=== PATIENT | male | born 1940 | race Caucasian/White ===

== ENCOUNTER → 2020-08-26 | Outpatient (CLI) | payer MEDICARE | END | disposition home or self-care (01) | LOC: CT 14:51 | PROVIDERS: ATTEND Urology | DX: R35.0 Frequency of micturition (principal) ==

== ENCOUNTER → 2020-12-30 | Outpatient (CLI) | payer MEDICARE ==
[2020-12-30 10:39] LABS: BASO % 0.6 % (0.0-1.0); EOS % 0.8 % (1.0-4.0); HEMATOCRIT 44.6 % (42.0-52.0); LYMPH # 1.3 10*3/uL (1.3-4.4); LYMPH % 23.8 % (27.0-41.0); MEAN CELL VOLUME 90.8 fl (80.0-94.0); MEAN CORPUSCULAR HGB 30.3 pg (27.0-31.0); MEAN CORPUSCULAR HGB CONC 33.4 g/dl (33.0-37.0); MEAN PLATELET VOLUME 9.8 fl (9.6-12.3); MONO # 0.4 10*3/uL (0.1-1.0); MONO % 7.4 % (3.0-9.0); NEUT # 3.5 10*3/uL (2.3-7.9); PLATELET COUNT AUTOMATED 195 10*3/uL (130-400); RED BLOOD COUNT 4.91 10*6/uL (4.50-5.90); RED CELL DISTRI WIDTH 12.4 % (0-14.5); WHITE BLOOD COUNT 5.3 10*3/uL (4.8-10.8)
[2020-12-30 10:40] LABS: BILIRUBIN Negative (Negative); BLOOD Negative (Negative); CLARITY Clear (Clear); COLOR Dark Yellow (Yellow); GLUCOSE Negative (Negative); KETONE Trace (Negative); LEUKO ESTERASE Negative (Negative); NITRITE Negative (Negative); PH 7.5 (4.5-8.0)
[2020-12-30 11:10] LABS: ALBUMIN 3.8 gm/dl (3.1-4.5); ALKALINE PHOSPHATASE 56 U/L (45-117); BACTERIA TRACE; BUN 11 mg/dl (7-24); CALCIUM OXALATE CRYSTALS 1+; CHLORIDE 102 mmol/L (98-107); CREATININE 1.31 mg/dL (0.70-1.30); EPITHELIAL CELLS 0-2; MUCOUS 3+; POTASSIUM 3.9 mmol/L (3.5-5.1); SGOT/AST 14 IU/L (3-35); SGPT/ALT 21 U/L (12-78); SODIUM 137 mmol/L (136-145); TOTAL PROTEIN 7.5 gm/dL (6.4-8.2); WBC 0-2 wbc/hpf (0-5)
== END | disposition home or self-care (01) ==
LOC: LAB 10:02
PROVIDERS: ATTEND Urology
DX: J44.9 Chronic obstructive pulmonary disease, unspecified (principal); E03.9 Hypothyroidism, unspecified; R31.9 Hematuria, unspecified

== ENCOUNTER → 2021-02-09 | Outpatient (CLI) | payer OTHER ==
[2021-02-09 10:42] LABS: BASO % 0.4 % (0.0-1.0); BILIRUBIN Negative (Negative); BLOOD 1+ (Negative); CLARITY Cloudy (Clear); COLOR Yellow (Yellow); EOS # 0.2 10*3/uL (0.0-0.4); EOS % 2.2 % (1.0-4.0); GLUCOSE Negative (Negative); HEMATOCRIT 43.2 % (42.0-52.0); KETONE Negative (Negative); LEUKO ESTERASE 3+ (Negative); LYMPH # 1.7 10*3/uL (1.3-4.4); LYMPH % 25.4 % (27.0-41.0); MEAN CELL VOLUME 90.4 fl (80.0-94.0); MEAN CORPUSCULAR HGB 29.3 pg (27.0-31.0); MEAN CORPUSCULAR HGB CONC 32.4 g/dl (33.0-37.0); MEAN PLATELET VOLUME 10.1 fl (9.6-12.3); MONO # 0.5 10*3/uL (0.1-1.0); MONO % 7.4 % (3.0-9.0); NEUT # 4.3 10*3/uL (2.3-7.9); NEUT % 63.4 % (47.0-73.0); NITRITE Positive (Negative); PH 7.5 (4.5-8.0); PLATELET COUNT AUTOMATED 195 10*3/uL (130-400); RED BLOOD COUNT 4.78 10*6/uL (4.50-5.90); RED CELL DISTRI WIDTH 12.4 % (0-14.5); UROBILINOGEN 0.2 E.U./dl (0.0-1.0); WHITE BLOOD COUNT 6.7 10*3/uL (4.8-10.8)
[2021-02-09 10:59] LABS: ALBUMIN 3.5 gm/dl (3.1-4.5); ALKALINE PHOSPHATASE 56 U/L (45-117); BUN 7 mg/dl (7-24); CHLORIDE 101 mmol/L (98-107); CREATININE 1.12 mg/dL (0.70-1.30); POTASSIUM 3.6 mmol/L (3.5-5.1); SGOT/AST 14 IU/L (3-35); SGPT/ALT 20 U/L (12-78); SODIUM 135 mmol/L (136-145)
[2021-02-09 12:06] LABS: WBC TNTC wbc/hpf (0-5)
[2021-02-09 12:08] LABS: BACTERIA 3+; RBC 16-20 rbc/hpf (0-2)
== END | disposition home or self-care (01) ==
LOC: LAB 09:43 → US 09:43
PROVIDERS: ATTEND Urology
DX: N39.0 Urinary tract infection, site not specified (principal); N28.89 Other specified disorders of kidney and ureter

== ENCOUNTER → 2021-09-06 | Outpatient (CLI) | payer MEDICARE | END | disposition home or self-care (01) | LOC: LAB 09:38 | PROVIDERS: ATTEND Urology | DX: N39.0 Urinary tract infection, site not specified (principal) ==

== ENCOUNTER 2022-04-17 15:00 | Emergency (ER) | payer MEDICARE ==
[~2022-04-17] VITALS: Ht 172.7 cm; Wt 86.2 kg
[2022-04-17 16:17] LABS: BASO # 0.1 10*3/uL (0.0-0.1); BASO % 0.6 % (0.0-1.0); EOS # 0.1 10*3/uL (0.0-0.4); EOS % 1.6 % (1.0-4.0); HEMATOCRIT 45.4 % (42.0-52.0); LYMPH # 1.7 10*3/uL (1.3-4.4); MEAN CELL VOLUME 89.9 fl (80.0-94.0); MEAN CORPUSCULAR HGB 30.7 pg (27.0-31.0); MEAN CORPUSCULAR HGB CONC 34.1 g/dl (33.0-37.0); MEAN PLATELET VOLUME 9.1 fl (9.6-12.3); MONO # 0.7 10*3/uL (0.1-1.0); MONO % 8.4 % (3.0-9.0); NEUT % 69.2 % (47.0-73.0); PLATELET COUNT AUTOMATED 273 10*3/uL (130-400); RED BLOOD COUNT 5.05 10*6/uL (4.50-5.90); RED CELL DISTRI WIDTH 12.7 % (0-14.5); WHITE BLOOD COUNT 8.7 10*3/uL (4.8-10.8)
[2022-04-17 16:38] LABS: ALKALINE PHOSPHATASE 63 U/L (45-117); BUN 6 mg/dl (7-24); CHLORIDE 103 mmol/L (98-107); CREATININE 0.91 mg/dL (0.70-1.30); POTASSIUM 3.7 mmol/L (3.5-5.1); SGOT/AST 13 IU/L (3-35); SGPT/ALT 25 U/L (12-78); SODIUM 136 mmol/L (136-145); TOTAL PROTEIN 6.7 gm/dL (6.4-8.2)
[2022-04-17 16:43] LABS: ETHYL ALCOHOL < 3.0 mg/dl (<3)
[2022-04-17 16:47] LABS: BILIRUBIN Negative (Negative); BLOOD Negative (Negative); CLARITY Cloudy (Clear); COLOR Yellow (Yellow); GLUCOSE Negative (Negative); KETONE Negative (Negative); LEUKO ESTERASE 3+ (Negative); NITRITE Negative (Negative); PH 6.5 (4.5-8.0); SPECIFIC GRAVITY <= 1.005 (1.001-1.030); UROBILINOGEN 0.2 E.U./dl (0.0-1.0)
[2022-04-17 17:04] LABS: URINE AMPHETAMINES < 1000 (1000ng/ml); URINE BARBITURATES < 200 (200ng/ml); URINE BENZODIAZEPINES < 200 (200ng/ml); URINE CANNABINOIDS (THC) < 50 (50ng/ml); URINE COCAINE < 300 (300ng/ml); URINE METHADONE < 300 (300ng/ml); URINE OPIATES < 300 (300ng/ml)
[2022-04-17 17:18] LABS: URINE PHENCYCLIDINE < 25 (25ng/ml)
[2022-04-17 17:23] LABS: BACTERIA TRACE; EPITHELIAL CELLS 0-2
[2022-04-17 20:00] VITALS: BP 129/81
[2022-04-18] MEDS ORDERED: BETHANECHOL CHL50 MG PO (13:06)
[2022-04-18] MEDS ORDERED: SYNTHROID25 MCG PO (13:07)
[2022-04-18] MEDS ORDERED: KLOR-CON M2020 ME1 PO (13:08)
[2022-04-18] MEDS ORDERED: D3-501250 MCG PO (13:14)
[2022-04-18] MEDS ORDERED: METAMUCIL FIBE3.4 GM PO (13:15)
[2022-04-18] MEDS ORDERED: LACTULOSE20 GM/30 M PO (13:18)
[2022-04-23] MEDS ORDERED: LACTULOSE20 GM/30 M PO (10:14)
[2022-04-23] MEDS ORDERED: VITAMIN D350 MC2 PO (10:14)
[2022-04-23] MEDS ORDERED: RAMELTEON8 MG PO (10:14)
[2022-04-23] MEDS ORDERED: MIRTAZAPINE15 M2 PO (10:14)
[2022-04-23] MEDS ORDERED: B121000 MCG/1 IM (10:14)
[2022-04-23] MEDS ORDERED: LISINOPRIL10 M1 PO (11:44)
== END 2022-04-17 23:13 ==
LOC: ED 15:00
PROVIDERS: Nurse Practitioner Family
DX: F43.23 Adjustment disorder with mixed anxiety and depressed mood (principal); Z20.822 Contact with and (suspected) exposure to COVID-19

== ENCOUNTER 2022-08-22 13:39 | Emergency (ER) | payer MEDICARE ==
[~2022-08-22] VITALS: Ht 167.6 cm; Wt 95.3 kg
[~2022-08-22 13:39] MED LIST: B121000 MCG/1 IM; BETHANECHOL CHL50 MG PO; D3-501250 MCG PO; KLOR-CON M2020 ME1 PO; LACTULOSE20 GM/30 M PO; LISINOPRIL10 M1 PO; METAMUCIL FIBE3.4 GM PO; MIRTAZAPINE15 M2 PO; RAMELTEON8 MG PO; SYNTHROID25 MCG PO; VITAMIN D350 MC2 PO
[2022-08-22 13:51] VITALS: BP 155/63
== END 2022-08-22 15:02 | disposition home or self-care (01) ==
LOC: ED 13:39
DX: T83.098A Other mechanical complication of other urinary catheter, initial encounter (principal); Z98.890 Other specified postprocedural states; Y84.8 Other medical procedures as the cause of abnormal reaction of the patient, or of later complication, without mention of misadventure at the time of the procedure; Y92.89 Other specified places as the place of occurrence of the external cause

== ENCOUNTER 2022-09-08 12:36 | Emergency (ER) | payer MEDICARE ==
[~2022-09-08] VITALS: Ht 167.6 cm; Wt 95.3 kg
[2022-09-08 12:43] VITALS: BP 116/48
== END 2022-09-08 13:18 | disposition home or self-care (01) ==
LOC: ED 12:36
DX: T83.031A Leakage of indwelling urethral catheter, initial encounter (principal); I10 Essential (primary) hypertension; F32.9 Major depressive disorder, single episode, unspecified; Z98.890 Other specified postprocedural states

== ENCOUNTER 2022-10-03 19:59 | Emergency (ER) | payer MEDICARE ==
[~2022-10-03] VITALS: Ht 182.8 cm; Wt 95.3 kg
[2022-10-03 20:46] VITALS: BP 174/74
[2022-10-03 22:01] LABS: BILIRUBIN Negative (Negative); BLOOD 1+ (Negative); CLARITY Cloudy (Clear); COLOR Yellow (Yellow); GLUCOSE Negative (Negative); KETONE Negative (Negative); LEUKO ESTERASE 3+ (Negative); NITRITE Positive (Negative); UROBILINOGEN 0.2 E.U./dl (0.0-1.0)
[2022-10-03 22:17] LABS: BACTERIA 2+; MUCOUS 1+; WBC 31-40 wbc/hpf (0-5)
[2022-10-03] MEDS ORDERED: MACRODANTIN100 M1 PO (22:32)
== END 2022-10-03 22:40 | disposition home or self-care (01) ==
LOC: ED 19:59
PROVIDERS: Internal Medicine
DX: T83.511A Infection and inflammatory reaction due to indwelling urethral catheter, initial encounter (principal); T83.098A Other mechanical complication of other urinary catheter, initial encounter; N39.0 Urinary tract infection, site not specified; Y92.89 Other specified places as the place of occurrence of the external cause